=== PATIENT | male | born 1995 | race Hispanic/Latino ===

== ENCOUNTER 2017-02-08 11:01 | Emergency (ER) | payer BC, SELFPAY ==
[2017-02-08 11:36] LABS: Bilirubin Negative (Negative); Blood, Urine Negative (Negative); Glucose, Urine (Dipstick) Negative (Negative); Ketone, Urine Negative (Negative); Nitrite Negative (Negative); Protein, Urine (Dipstick) 30 mg/dL (Neg-Trace); Urobilinogen 0.2 mg/dL (0.2-1.0)
[2017-02-08 11:39] LABS: Bacteria/HPF None Seen HPF (None Seen); Hyaline Casts/LPF 0-3 HYALINE CAST LPF (0-3 Hyaline); RBC/HPF 0-3 HPF (0-3); Squamous Epithelial 0-3 HPF (0-3); WBC/HPF 0-3 HPF (0-3)
[2017-02-08 11:49] LABS: #Eosinphils 0.3 thou/uL (0.0-0.7); #Lymphocytes 0.7 thou/uL (1.20-3.40); #Monocytes 0.8 thou/uL (0.11-0.59); #Neutrophils 11.1 thou/uL (1.40-6.50); %Basophils 0.4 % (0.0-1.0); %Eosinophils 2.3 % (0.0-10.0); %Monocytes 5.8 % (0.0-10.0); Hematocrit 52.8 % (42.0-52.0); Mean Platelet Volume 9.3 fL (7.4-10.4); Red Blood Cell (RBC) Count 5.54 mill/uL (4.70-6.10); White Blood Cell (WBC) Count 12.9 thou/uL (4.8-10.8)
[2017-02-08] MEDS ORDERED: Ondansetron HCl/PF 4 MG/2 ML Vial ONE (11:50)
[2017-02-08] MEDS ORDERED: Ketorolac Tromethamine 30 MG/ML VIAL ONE (11:50)
[2017-02-08 12:11] LABS: ALT (SGPT) 23 U/L (8-55); AST (SGOT) 25 U/L (5-34); Alkaline Phosphatase 62 U/L (40-150); Anion Gap 15 mmol/L (10-20); BUN (Urea Nitrogen) 18 mg/dL (8.9-20.6); Bilirubin, Total 0.9 mg/dL (0.2-1.2); Calc. Creatinine Clearance 0 mL/min (70-130); Calcium 9.5 mg/dL (7.8-10.44); Carbon Dioxide 21 mmol/L (22-29); Chloride 108 mmol/L (98-107); Estimated GFR-MDRD Greater than 90; Globulin 3.2 g/dL (2.4-3.5); Lipase 14 U/L (8-78); Protein, Total 7.8 g/dL (6.0-8.3)
--- NOTE | 2017-02-08 13:19 | ULT ---
GALLBLADDER ULTRASOUND: HISTORY: Right upper quadrant pain. FINDINGS: Real-time imaging of the right upper quadrant demonstrates a normal-appearing gallbladder. The commo n duct is 3 mm. The liver measures approximately 18.8 cm in length. No focal masses. The right kid flor is normal in size and not obstructed. The pancreas is obscured. The technologist reports a negative ultrasound Klein's sign. IMPRESSION: Unremarkable gallbladder ultrasound. POS: [facility]
== END 2017-02-08 13:40 | disposition home or self-care (01) ==
LOC: ERS 11:01
DX: R10.13 Epigastric pain (principal); R11.2 Nausea with vomiting, unspecified; R10.11 Right upper quadrant pain; F17.210 Nicotine dependence, cigarettes, uncomplicated
CPT/HCPCS: 76705; 80053; 81003; 81015; 83690; 85025; 96361; 96374; 96375; J1885; J2405

== ENCOUNTER 2017-11-18 13:41 | Observation (INO) | payer SELFPAY ==
[2017-11-18] MEDS ORDERED: Diltiazem 125 MG in Sodium Chloride 0.9% 100 ML IVPB SCH ×2 (14:15→17:30)
[2017-11-18 14:16] LABS: #Basophils 0.1 thou/uL (0.0-0.2); #Eosinphils 0.4 thou/uL (0.0-0.7); #Lymphocytes 1.9 thou/uL (1.20-3.40); #Monocytes 0.9 thou/uL (0.11-0.59); #Neutrophils 3.7 thou/uL (1.40-6.50); %Basophils 1.2 % (0.0-1.0); %Eosinophils 5.9 % (0.0-10.0); %Lymphocytes 26.8 % (21.0-51.0); %Monocytes 12.8 % (0.0-10.0); %Neutrophils 53.4 % (42.0-75.0); Mean Corpuscular HGB CONC 34.1 g/dL (32.0-36.0); Mean Corpuscular Hemoglobin 32.3 pg (27.0-31.0); Mean Corpuscular Volume 94.5 fL (78.0-98.0); Mean Platelet Volume 9.8 fL (7.4-10.4); Platelet Count 241 thou/uL (130-400)
[2017-11-18 14:40] LABS: ALT (SGPT) 38 U/L (8-55); AST (SGOT) 29 U/L (5-34); Albumin 4.3 g/dL (3.5-5.0); Alkaline Phosphatase 61 U/L (40-150); Anion Gap 12 mmol/L (10-20); BUN (Urea Nitrogen) 13 mg/dL (8.9-20.6); Bilirubin, Total 0.5 mg/dL (0.2-1.2); Calc. Creatinine Clearance 0 mL/min (70-130); Calcium 9.2 mg/dL (7.8-10.44); Carbon Dioxide 21 mmol/L (22-29); Chloride 110 mmol/L (98-107); Estimated GFR-MDRD Greater than 90; Globulin 2.9 g/dL (2.4-3.5); Glucose 100 mg/dL (70-105); Potassium 4.1 mmol/L (3.5-5.1); Protein, Total 7.2 g/dL (6.0-8.3); Sodium 139 mmol/L (136-145)
[2017-11-18 14:45] LABS: CKMB 3.1 ng/mL (0-6.6); Troponin I Less than 0.010 ng/mL (< 0.028)
[2017-11-18] MEDS ORDERED: Guaifenesin DM 100-10/5 ML UDCUP PO PRN (17:28)
[2017-11-18] MEDS ORDERED: Acetaminophen 325 MG TAB PO PRN (17:28)
[2017-11-18 18:00] LABS: Acetaminophen Less than 6.0 mcg/mL (10.0-30.0); Alcohol Less than 10 mg/dL (Less than 10); Salicylate Less than 8.0 mg/dL (15.0-30.0)
[2017-11-18 19:02] LABS: Troponin I Less than 0.010 ng/mL (< 0.028)
[2017-11-18 19:27] VITALS: BMI 53.8
[2017-11-18] MEDS: Famotidine 20 MG TAB PO SCH (20:17)
[2017-11-18] MEDS: Metoprolol Tartrate 25 MG TAB PO SCH (20:17)
[2017-11-18 21:27] LABS: Troponin I Less than 0.010 ng/mL (< 0.028)
[2017-11-18 22:50] LABS: Amphetamine Not Detected (NotDetected); Barbiturates Screen Not Detected (NotDetected); Benzodiazepine Screen Not Detected (NotDetected); Cocaine Metabolite Screen Not Detected (NotDetected); Medtox Control Line Valid? VALID (VALID); Medtox Reader # READER 1; Methadone Not Detected (NotDetected); Methamphetamine Not Detected (NotDetected); Opiate Screen Not Detected (NotDetected); Oxycodone Screen Not Detected (NotDetected); Phencyclidine (PCP) Not Detected (NotDetected); THC/Cannabinoid Screen Detected (NotDetected); Tricyclic Screen Not Detected (NotDetected)
--- NOTE | 2017-11-19 00:18 | HP ---
REASON FOR ADMISSION: Atrial fibrillation with rapid ventricular response, new onset. HISTORY OF PRESENT ILLNESS: The patient gives history of having palpitations last night. He went to bed with it. When he woke up in the morning, he was still feeling the same and he called his mom who works in healthcare. She asked him to come to the ER. Has some dry cough, but no expectoration. The patient has no complaints of chest pain or shortness of breath or PND. No prior history of atrial fibrillation. Patient has no history of thyroid disease. Drinks energy drink every other day. PAST MEDICAL/SURGICAL HISTORY: No medical history: He has had tonsillectomy and myringotomy tubes placed when he was a kid. CURRENT MEDICATIONS: Motrin p.r.n. ALLERGIES: No known drug allergies. PERSONAL HISTORY: Drinks and smokes only on social occasions. Does not abuse drugs. Works at [employer]. FAMILY HISTORY: Mother has history of atrial fibrillation, she has also had a stroke when she was 34 years of age, she is currently living. Father has history of diabetes. CODE STATUS: FULL. Power of prosecuting attorney is his mom. REVIEW OF SYSTEMS: The following complete review of systems was negative, unless otherwise mentioned in the HPI or below: Constitutional: Weight loss or gain, ability to conduct usual activities. Skin: Rash, itching. Eyes: Double vision, pain. ENT/Mouth: Nose bleeding, neck stiffness, pain, tenderness. Cardiovascular: Palpitations, dyspnea on exertion, orthopnea. Respiratory: Shortness of breath, wheezing, cough, hemoptysis, fever or night sweats. Gastrointestinal: Poor appetite, abdominal pain, heartburn, nausea, vomiting, constipation, or diarrhea. Genitourinary: Urgency, frequency, dysuria, nocturia. Musculoskeletal: Pain, swelling. Neurologic/Psychiatric: Anxiety, depression. Allergy/Immunologic: Skin rash, bleeding tendency. PHYSICAL EXAMINATION: GENERAL: The patient is a 22-year-old male who is currently not in any acute distress. VITAL SIGNS: Blood pressure 124/60, pulse 60 per minute, respiratory rate 20 per minute, temperature 98.1 degrees Fahrenheit, saturating 98% on room air. NECK: Supple, no elevated JVD. HEENT: Extraocular muscles intact. Pupils reacting to light. Oral cavity mucous membranes are moist. No exudates or congestion. CARDIOVASCULAR: S1, S2 heard. Irregular rhythm. RESPIRATORY: Air entry 1+ bilaterally. No rales or rhonchi. ABDOMEN: Soft, bowel sounds heard. No tenderness, rigidity or guarding. EXTREMITIES: No peripheral edema or calf tenderness. VASCULAR SYSTEM: Peripheral pulses 2+ bilateral, no ischemic ulcerations or gangrene. CENTRAL NERVOUS SYSTEM: No gross focal deficits noted. Patient is alert, awake , oriented well. PSYCHIATRIC: The patient's mood is euthymic. No hallucinations or delusions. LABORATORY AND X-RAY FINDINGS: EKG done on arrival shows atrial fibrillation with RVR at 158 beats per minute. White count of 7, H and H 19 and 55, platelet count 241 with 53% neutrophils. Serum bicarbonate 21, BUN 13, creatinine 0.8, glucose 100. Liver enzymes within normal limits. First set of cardiac enzymes are negative. Albumin is 4.3. Plasma alcohol less than 10. CLINICAL IMPRESSION AND PLAN: The patient will be placed under observation on telemetry for new onset atrial fibrillation with rapid ventricular response. He is currently on Cardizem drip and we will continue this at 5 mg an hour. We will place him on a small dose of Lopressor 25 mg twice daily. A full dose aspirin for now. We will consult Dr. Melendez, who is consulting psychiatrist for Cardiology. Echo with 2D Doppler for LV function will be obtained. Thyroid function tests will be obtained in the morning. Two more sets of troponin has been ordered and the urine drug screen will be obtained as well. We will continue to closely monitor him on telemetry. [facility]
[2017-11-19 04:49] LABS: #Basophils 0.1 thou/uL (0.0-0.2); #Eosinphils 0.6 thou/uL (0.0-0.7); #Lymphocytes 2.8 thou/uL (1.20-3.40); #Neutrophils 5.2 thou/uL (1.40-6.50); %Basophils 0.7 % (0.0-1.0); %Eosinophils 6.2 % (0.0-10.0); %Lymphocytes 29.2 % (21.0-51.0); %Monocytes 10.2 % (0.0-10.0); %Neutrophils 53.7 % (42.0-75.0); Hemoglobin 19.5 g/dL (14.0-18.0); Mean Corpuscular HGB CONC 34.1 g/dL (32.0-36.0); Mean Corpuscular Hemoglobin 32.7 pg (27.0-31.0); Mean Corpuscular Volume 95.8 fL (78.0-98.0); Mean Platelet Volume 9.9 fL (7.4-10.4); Platelet Count 257 thou/uL (130-400); RBC Distribution Width 12.1 % (11.5-14.5); Red Blood Cell (RBC) Count 5.97 mill/uL (4.70-6.10); White Blood Cell (WBC) Count 9.7 thou/uL (4.8-10.8)
[2017-11-19 05:16] LABS: Anion Gap 12 mmol/L (10-20); BUN (Urea Nitrogen) 11 mg/dL (8.9-20.6); Calc. Creatinine Clearance 358 mL/min (70-130); Carbon Dioxide 19 mmol/L (22-29); Chloride 109 mmol/L (98-107); Estimated GFR-MDRD Greater than 90; Glucose 93 mg/dL (70-105); Potassium 3.7 mmol/L (3.5-5.1); Sodium 136 mmol/L (136-145)
[2017-11-19 05:37] LABS: Free T4 (Free Thyroxine) 0.98 ng/dL (0.70-1.48)
[2017-11-19 06:03] LABS: Thyroid Stimulating Hormone 0.9433 uIU/mL (0.35-4.94)
[2017-11-19] MEDS ORDERED: Sodium Chloride 0.9% 1,000 ML IV SCH (07:45)
[2017-11-19] MEDS: Famotidine 20 MG TAB PO SCH (07:59)
[2017-11-19] MEDS: Metoprolol Tartrate 25 MG TAB PO SCH (08:00)
[2017-11-19] MEDS ORDERED: Aspirin 325 MG TAB PO SCH (09:00)
[2017-11-19] MEDS ORDERED: Enoxaparin Sodium 40 MG/0.4 ML SYRINGE SC SCH (09:00)
--- NOTE | 2017-11-19 11:20 | PDOC.PN ---
- Subjective Encounter Start Date: 11/19/17 Encounter Start Time: 09:15 Subjective: no subjective palpitations, is in afib on monitor -: no sob or chest pain - Objective Resuscitation Status: Resuscitation Status FULL:Full Resuscitation MAR Reviewed: Yes Vital Signs & Weight: Vital Signs (12 hours) Temp Pulse Resp BP BP Pulse Ox 11/19/17 08:10 97.6 F 75 18 122/78 94 L 11/19/17 07:08 97.6 F 75 18 122/78 94 L 11/19/17 04:13 80 16 127/58 L 95 Weight Weight 386 lb 9.6 oz I&O: 11/18/17 11/19/17 11/20/17 06:59 06:59 06:59 Intake Total 538 Output Total 700 Balance -162 Result Diagrams: 11/19/17 04:40 11/19/17 04:40 Phys Exam - Physical Examination HEENT: PERRLA, moist MMs Neck: no JVD, supple Respiratory: no wheezing, no rales Cardiovascular: no significant murmur, irregular Gastrointestinal: soft, non-tender, positive bowel sounds Musculoskeletal: no edema, pulses present Neurological: non-focal, moves all 4 limbs Psychiatric: normal affect, A&O x 3 Dx/Plan (1) Afib Code(s): I48.91 - UNSPECIFIED ATRIAL FIBRILLATION Status: Acute Comment: new onset (2) Obesity Code(s): E66.9 - OBESITY, UNSPECIFIED Status: Chronic - Plan is on cardizem drip -: full dose asp -: await echo, cardio consultation, likely GAUDENCIO and cardioversion if he didnt c -: -onvert. Thyroid function is normal, trop x 3 is -ve * . Review of Systems - Medications/Allergies Allergies/Adverse Reactions: Allergies Allergy/AdvReac Type Severity Reaction Status Date / Time No Known Allergies Allergy Verified 11/18/17 19:47 Medications: Current Medications Acetaminophen (Tylenol) 650 mg PO Q4H PRN PRN Reason: Headache/Fever or Pain Aspirin (Aspirin) 325 mg PO DAILY [facility] Last Admin: 11/19/17 07:59 Dose: 325 mg Enoxaparin Sodium (Lovenox) 40 mg SC 0900 [facility] Last Admin: 11/19/17 08:00 Dose: 40 mg Famotidine (Pepcid) 20 mg PO BID [facility] Last Admin: 11/19/17 07:59 Dose: 20 mg Guaifenesin/Dextromethorphan (Robitussin Dm) 15 ml PO Q4H PRN PRN Reason: Cough Diltiazem HCl 125 mg/ Sodium (Chloride) 125 mls @ 5 mls/hr IVPB INF IVAN; Protocol Sodium Chloride (Normal Saline 0.9%) 1,000 mls @ 125 mls/hr IV .Q8H IVAN Stop: 11/19/17 23:44 Last Admin: 11/19/17 07:59 Dose: 1,000 mls Metoprolol Tartrate (Lopressor) 25 mg PO BID [facility] Last Admin: 11/19/17 08:00 Dose: 25 mg
--- NOTE | 2017-11-19 12:42 | CON ---
DATE OF CONSULTATION: 11/19/2017 REASON FOR CONSULTATION: Atrial fibrillation. HISTORY OF PRESENT ILLNESS: Mr. Espinoza is a 22-year-old gentleman with no previous history of atr ial fibrillation. He does have a family history of atrial fibrillation. He states over the last sev eral days he has had palpitations. No chest pain or pressure, or other associated symptoms present. No dizziness, lightheadedness, syncope or presyncope. He rarely uses alcohol. His thyroid appeared to be within normal limits. PAST MEDICAL HISTORY: None. PAST SURGICAL HISTORY: Tonsillectomy. MEDICATIONS: None. SOCIAL HISTORY: As above. No tobacco use. REVIEW OF SYSTEMS: Ten point systems were reviewed and is as above, otherwise negative. PHYSICAL EXAMINATION: VITAL SIGNS: Blood pressure 105/62, pulse 85, temperature 98.2. GENERAL: Patient is a pleasant male who is in no acute distress. The patient appears his stated age. NEUROLOGIC: The patient is alert and oriented times 3 with no focal neurologic deficits. HEENT: Sclerae without icterus. Mouth has moist mucous membranes with normal pallor. NECK: No JVD. Carotid upstroke brisk. No bruits bilaterally. LUNGS: Clear to auscultation with unlabored respirations. BACK: No scoliosis or kyphosis. CARDIAC: Irregularly irregular. ABDOMEN: Soft, nontender, nondistended. No peritoneal signs present. No hepatosplenomegaly. No abn ormal striae. EXTREMITIES: 2+ femoral and 2+ dorsalis pedis pulses. No cyanosis, clubbing, or edema. SKIN: No gross abnormalities. PERTINENT LABS: Hemoglobin 19.5. Echo with Doppler pending. IMPRESSION: New onset atrial fibrillation. RECOMMENDATIONS: No inciting event. Patient with no alcohol use and thyroid is within normal limits . No previous drug use or stimulants. At this point, I recommend rate control. He is currently on beta unique therapy. We will increase Lopressor to 50 mg 1 p.o. b.i.d. and decrease IV Cardizem. If he continues to be in atrial fibrillation would recommend GAUDENCIO with cardioversion tomorrow. I disc ussed the procedure in full detail with Mr. Espinoza. The risks included, but are not limited to da paige teeth, back of the throat, damage to esophagus requiring emergent surgery, reaction to medicati on. I also discussed cardioversion including burning of skin, stroke, failed cardioversion or need f or repeat cardioversion. All questions were answered. Given the above, the patient agreed to procee d with procedure.
[2017-11-19] MEDS ORDERED: PROPOFOL 40 ML ONE (13:46)
[2017-11-19] MEDS ORDERED: Fentanyl 100 MCG/2 ML VIAL ONE (14:03)
[2017-11-19] MEDS ORDERED: PROPOFOL 200 MG/20 ML VIAL ONE (14:16)
[2017-11-19 16:00] VITALS: BP 124/75; TEMP 97.5
--- NOTE | 2017-11-19 19:01 | CON ---
DATE OF CONSULTATION: 11/19/2017 [facility]: Dr. Cardenas I am seeing Mr. Espinoza in the hospital telemetry floor as an electrophysiology mental hygiene consultant. His problems are: 1. Newly found persistent atrial fibrillation with rapid ventricular rates. 2. No prior medical history. ALLERGIES: None noted. MEDICATIONS: Only Motrin p.r.n. SUBJECTIVE: Mr. Espinoza was experiencing palpitations, started on IV for the admission. He woke up in the morning the same day and eventually his mother who works in [employer] according to went to ER. He had some dry cough. No fever, chills or phlegm production. He had no chest pains or dyspnea. No PND or other sinus fluid overload. He had no stroke-like symptoms or neurological deficits, no bleeding issues. REVIEW OF SYSTEMS: Twelve point system otherwise unremarkable. PAST MEDICAL HISTORY: No prior history of atrial fibrillation noted. SOCIAL HISTORY: Patient drinks and smokes on social occasions. Denies drug use. 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 FAMILY HISTORY: Significant for atrial fibrillation for mother and a stroke when she was 34 years old. Father with history of diabetes. OBJECTIVE DATA: VITAL SIGNS: Blood pressure is 105/62, heart rate 85, respiration is 18, temperature 98.2 degrees Fahrenheit. GENERAL: He is alert and oriented man in no apparent distress. NECK: Supple. Jugular veins are not distended. CHEST: Coarse without crackles. CARDIOVASCULAR: Heart sounds are irregularly irregular. S1, S2, are variable. No murmur or gallop. ABDOMEN: Benign. Bowel sounds positive. EXTREMITIES: Lower extremities without edema, clubbing or cyanosis. Pulses are adequate. NEUROLOGIC: Patient nonfocal. MUSCULOSKELETAL: No joint deformity. SKIN: Without rash. DATABASE: The EKG is reviewed revealing a coarse atrial fibrillation with rapid rates. Initially, the rate controlled with diltiazem as documented. LABORATORY DATA: White cell count is 9.7, [id number], platelet count is 257. Sodium 136, potassium 3.7, BUN and creatinine 0.79. Tox screen is negative except for cannabinoid. ASSESSMENT AND PLAN: 1. Mr. Espinoza is a 22-year-old man without much cardiac history who presents with persistent atrial fibrillation. He is receiving diltiazem, so far has not cardioverted. The exact duration is unclear although his [id number]- Vasc score is low. We would like to evaluate his cardiac structures as I discussed with Dr. Cardenas. A GAUDENCIO would be reasonable to perform prior to a planned cardioversion. Risks, benefits of procedure are detailed. He understands and willing to proceed. 2. Short duration of anticoagulation reasonable even though his low CHADS-VASc score. remote computer terminal operator ASA only. 3. Frequent atrial fibrillation seen. He could be considered for flecainide versus primary ablation procedure. 4. I have to see him back in an outpatient office. KALLIE
[2017-11-19] MEDS ORDERED: Diltiazem 125 MG in Sodium Chloride 0.9% 100 ML IVPB SCH (20:00)
[2017-11-19] MEDS ORDERED: Metoprolol Tartrate 25 MG TAB PO SCH (21:00)
--- NOTE | 2017-11-19 22:47 | ECHO ---
REASON FOR PROCEDURE: The patient is a 22-year-old man who has no significant prior medical history who presented with pers istent atrial fibrillation. He is here for GAUDENCIO prior to planned cardioversion. PROCEDURE: The patient received propofol by Anesthesia specialist. After adequate level of sedation achieved, t he standard transesophageal echocardiogram probe was passed into the distal esophagus without difficu lty. Patient tolerated procedure well, no complications noted. RESULTS: Left atrium is normal in size 3.5 cm in horizontal diameter. Left atrial appendage as visualized contains no clots. Two left-sided pulmonary veins are well seen. The right side pulmonary vein has early trifurcation of the possible middle vein also visualized. The interatrial septum is free of defect. Mitral valve, aortic valve, tricuspid and pulmonary valve are all normal without stenosis or regurgi tation. The left ventricular function is preserved. No septal defect identified. The right sided chambers are nondilated. Pericardial space is free of effusion. Visualized portion of the ascending and descending aorta without aneurysm, dissection or atheroma. CONCLUSION: 1. Normal GAUDENCIO. 2. Normal LV systolic function. 3. No intracardiac clots. 4. No significant valvular heart disease. ADDENDUM: By the end of the GAUDENCIO, patient spontaneously converted back to sinus rhythm. PLAN: Continue aspirin for anticoagulation and monitor for recurrence.
--- NOTE | 2017-11-20 12:38 | DIS ---
DATE OF ADMISSION: 11/18/2017 DATE OF DISCHARGE: 11/19/2017 DISCHARGE DISPOSITION: To home. PRIMARY DISCHARGE DIAGNOSES: New onset atrial fibrillation with rapid ventricular response in sinus rhythm, obesity. PROCEDURES DONE DURING HOSPITALIZATION: Patient had transthoracic echo done, which showed an EF of 55-60%. Patient had transesophageal echo done by Dr. Humphrey Wasserman, which was normal with no intracardiac clots or thrombus. Normal LV systolic function was seen. By the end of GAUDENCIO, patient converted back to sinus rhythm. H&H 19 and 57, platelet count 257,000, BUN 11, creatinine 0.7, free T4 of 0.9, free T3 of 3.16. TSH 0.94. Troponin x3 negative. CK-MB 3.1. Urine drug screen was positive for cannabinoids. Plasma alcohol was less than 10. BMI was 53. DISCHARGE MEDICATIONS: Aspirin 81 mg p.o. daily, Lopressor 25 mg twice daily. The patient has been placed on Eliquis 5 mg twice daily by Dr. Cardenas. ALLERGIES: No known drug allergies. INPATIENT CONSULTS: Dr. Cardenas for Cardiology and Dr. Lisy Yin for Electrophysiology. DISCHARGE PLAN: Patient is to follow up with Dr. Cardeans in 4 weeks and primary care physician in 1 week. BRIEF COURSE DURING HOSPITALIZATION: Patient initially came to ER with complaints of palpitations which started the night before. He has some dry cough, but no expectoration. He was diagnosed with new onset atrial fibrillation. He has had transthoracic and transesophageal both echo was done, which did not reveal any thrombus. His ejection fraction was 55-60%. The plan was for cardioversion, but patient spontaneously converted to sinus rhythm after transesophageal echo procedure was being done. He was on Cardizem 5 mg an hour drip which was discontinued. He has been advised to continue Lopressor 25 mg twice daily. He is hemodynamically stable and has been cleared by Cardiology for discharge. Please see a [id number] documentation on [facility] for the day of discharge. [facility]
--- NOTE | 2017-11-29 12:39 | EKG ---
Test Reason : Blood Pressure : / mmHG Vent. Rate : 158 BPM Atrial Rate : 166 BPM P-R Int : 000 ms QRS Dur : 102 ms QT Int : 294 ms P-R-T Axes : 000 046 -17 degrees QTc Int : 476 ms Atrial fibrillation with rapid ventricular response with premature ventricular or aberrantly conducte d complexes Nonspecific T wave abnormality Abnormal ECG Confirmed by IRENE LOPEZ, ROSEANNA ([id number]), associate editor MATTHEW GAMEZ ([id number]) on 11/29/2017 12:39:18 PM Referred By: Confirmed By:ROSEANNA BONILLA MD
== END 2017-11-19 16:44 | disposition home or self-care (01) ==
LOC: ERS 13:41 → 2SW 16:20
PROVIDERS: ADMIT Internal Medicine; ATTEND Internal Medicine
DX: I48.1 Persistent atrial fibrillation (principal); E66.9 Obesity, unspecified; Z79.01 Long term (current) use of anticoagulants; Z79.82 Long term (current) use of aspirin; Z79.899 Other long term (current) drug therapy
CPT/HCPCS: 36415; 80048; 80053; 80306; 80307; 82553; 84439; 84443; 84481; 84484; 85025; 92960; 93005; 93306; 93312; 96365; 96366; 96372; 96376; G0378; J1650; J2704; J3010; J7050

== ENCOUNTER 2018-03-26 10:19 | Emergency (ER) | payer SELFPAY | END 2018-03-26 13:13 | disposition home or self-care (01) | LOC: ERS 10:19 | DX: H65.92 Unspecified nonsuppurative otitis media, left ear (principal); I48.91 Unspecified atrial fibrillation; F17.210 Nicotine dependence, cigarettes, uncomplicated | CPT/HCPCS: 99282 ==

== ENCOUNTER 2018-06-09 17:18 | Emergency (ER) | payer SELFPAY ==
[2018-06-09] MEDS ORDERED: Bacitracin Zinc 1 Packet ONE (17:27)
== END 2018-06-09 17:32 | disposition home or self-care (01) ==
LOC: ERS 17:18
DX: S61.012D Laceration without foreign body of left thumb without damage to nail, subsequent encounter (principal); I48.91 Unspecified atrial fibrillation

== ENCOUNTER 2019-01-17 17:39 | Emergency (ER) | payer SELFPAY | END 2019-01-17 18:17 | disposition home or self-care (01) | LOC: ERS 17:39 | DX: J30.9 Allergic rhinitis, unspecified (principal); R04.0 Epistaxis; I48.91 Unspecified atrial fibrillation | CPT/HCPCS: 99283 ==

== ENCOUNTER 2019-02-05 11:00 | Emergency (ER) | payer SELFPAY | END 2019-02-05 12:10 | disposition home or self-care (01) | LOC: ERS 11:00 | DX: H66.92 Otitis media, unspecified, left ear (principal); I49.9 Cardiac arrhythmia, unspecified; I48.91 Unspecified atrial fibrillation | CPT/HCPCS: 99283 ==